=== PATIENT | female | born 1945 | race Two or more races ===

== ENCOUNTER 2023-02-27 11:15 | Inpatient (IN) | payer OTHER ==
[~2023-02-27] VITALS: Ht 165.1 cm; Wt 68.0 kg
[2023-02-28] MEDS ORDERED: FOSAMAX70 MG PO (08:44)
[2023-02-28] MEDS ORDERED: ALPRAZOLAM2 MG PO (08:44)
[2023-02-28] MEDS ORDERED: TOPROL XL50 M1 PO (08:45)
[2023-02-28] MEDS ORDERED: METFORMIN HCL500 M3 PO (08:45)
[2023-02-28] MEDS ORDERED: CLONAZEPAM2 MG PO (08:45)
[2023-02-28] MEDS ORDERED: CARAFATE1 GM PO (08:45)
[2023-02-28] MEDS ORDERED: QUINAPRIL HCL40 MG PO (08:46)
[2023-02-28] MEDS ORDERED: ACID REDUCER20 M1 PO (08:46)
[2023-02-28] MEDS ORDERED: CRESTOR20 MG PO (08:46)
[2023-02-28] MEDS ORDERED: ALLERGY RELIE15.8 ML NASAL (08:47)
[2023-02-28] MEDS ORDERED: MONTELUKAST SOD10 MG PO (08:47)
[2023-02-28] MEDS ORDERED: VENTOLIN HFA18 GM IH (08:47)
[2023-02-28] MEDS ORDERED: ALLEGRA ALLERGY60 MG PO (08:48)
[2023-02-28] MEDS ORDERED: BENZONATATE150 MG PO (08:49)
[2023-03-04] MEDS ORDERED: PERCOCET 5-3251 EACH PO (07:11)
[2023-03-04] MEDS ORDERED: MEDROLPACK PO (07:11)
[2023-03-04] MEDS ORDERED: PEPCID AC20 MG PO (07:12)
[2023-03-04] MEDS ORDERED: ZOFRAN8 MG PO (07:12)
[2023-03-04] MEDS ORDERED: COLACE100 MG PO (07:12)
== END 2023-03-06 22:31 | DRG 473 ==
LOC: SURH 03-04 05:36 → O/R 03-04 05:36 → SURG 03-04 07:00 → SURH 03-04 12:08
PROVIDERS: ADMIT Orthopaedic Surgery Orthopaedic Surgery of the Spine; ATTEND Orthopaedic Surgery Orthopaedic Surgery of the Spine
PROC: 0RT30ZZ Resection of Cervical Vertebral Disc, Open Approach (ICD-10-PCS; 2023-03-04)
PROC: 07DS0ZZ Extraction of Vertebral Bone Marrow, Open Approach (ICD-10-PCS; 2023-03-04)
PROC: 0RG20A0 Fusion of 2 or more Cervical Vertebral Joints with Interbody Fusion Device, Anterior Approach, Anterior Column, Open Approach (ICD-10-PCS; principal; 2023-03-04 07:00)
DX: M50.01 Cervical disc disorder with myelopathy, high cervical region (principal); M48.02 Spinal stenosis, cervical region; I10 Essential (primary) hypertension; E11.9 Type 2 diabetes mellitus without complications

== ENCOUNTER 2023-03-07 16:03 | Inpatient (IN) | payer OTHER ==
[~2023-03-07] VITALS: Ht 165.1 cm; Wt 66.7 kg
[~2023-03-07 16:03] MED LIST: ACID REDUCER20 M1 PO; ALLEGRA ALLERGY60 MG PO; ALLERGY RELIE15.8 ML NASAL; ALPRAZOLAM2 MG PO; BENZONATATE150 MG PO; CARAFATE1 GM PO; CLONAZEPAM2 MG PO; COLACE100 MG PO; CRESTOR20 MG PO; FOSAMAX70 MG PO; MEDROLPACK PO; METFORMIN HCL500 M3 PO; MONTELUKAST SOD10 MG PO; PEPCID AC20 MG PO; PERCOCET 5-3251 EACH PO; QUINAPRIL HCL40 MG PO; TOPROL XL50 M1 PO; VENTOLIN HFA18 GM IH; ZOFRAN8 MG PO
[2023-03-10] MEDS ORDERED: DULOXETINE HCL60 MG (14:59)
[2023-03-10] MEDS ORDERED: GABAPENTIN600 MG (14:59)
[2023-03-10] MEDS ORDERED: SUCRALFATE1 GM (14:59)
[2023-03-10] MEDS ORDERED: NORVASC2.5 MG (14:59)
[2023-03-10] MEDS ORDERED: ALENDRONATE SOD70 MG (14:59)
[2023-03-10] MEDS ORDERED: OMEPRAZOLE20 MG (14:59)
[2023-03-10] MEDS ORDERED: IRBESARTAN150 MG (14:59)
[2023-03-10] MEDS ORDERED: DESLORATADINE5 MG (14:59)
[2023-03-10] MEDS ORDERED: BACLOFEN10 MG (15:00)
[2023-03-10] MEDS ORDERED: DICLOFENAC SODI50 MG (15:00)
[2023-03-10] MEDS ORDERED: BUSPIRONE HCL10 MG (15:00)
[2023-03-17] MEDS ORDERED: AVAPRO150 MG PO (06:59)
[2023-03-17] MEDS ORDERED: DILTIAZEM HCL120 MG PO (06:59)
[2023-03-17] MEDS ORDERED: CRESTOR20 MG PO (06:59)
[2023-03-17] MEDS ORDERED: ALLEGRA ALLERGY60 MG PO (07:02)
== END 2023-03-17 17:27 | disposition home or self-care (01) | DRG 178 ==
LOC: ER 16:03 → SEC-K 03-08 10:18 → SURG 03-08 10:29
PROVIDERS: ADMIT Internal Medicine; ATTEND Internal Medicine
PROC: 4A12X4Z Monitoring of Cardiac Electrical Activity, External Approach (ICD-10-PCS; 2023-03-08)
PROC: 02HV33Z Insertion of Infusion Device into Superior Vena Cava, Percutaneous Approach (ICD-10-PCS; 2023-03-10)
PROC: B54DZZZ Ultrasonography of Bilateral Lower Extremity Veins (ICD-10-PCS; principal; 2023-03-12)
PROC: CB1YYZZ Planar Nuclear Medicine Imaging of Respiratory System using Other Radionuclide (ICD-10-PCS; 2023-03-12)
PROC: BW24YZZ Computerized Tomography (CT Scan) of Chest and Abdomen using Other Contrast (ICD-10-PCS; 2023-03-14)
DX: J69.0 Pneumonitis due to inhalation of food and vomit (principal); J90 Pleural effusion, not elsewhere classified; R09.02 Hypoxemia; I67.1 Cerebral aneurysm, nonruptured; E11.9 Type 2 diabetes mellitus without complications; Z79.4 Long term (current) use of insulin; I10 Essential (primary) hypertension; Z74.01 Bed confinement status
CPT/HCPCS: 70496